=== PATIENT | male | born 1945 ===

== ENCOUNTER → 2018-07-06 21:15 | Outpatient (REF) | payer OTHER, SELFPAY ==
[2018-07-06 22:20] LABS: Alanine Aminotransferase 36 IU/L (21-72); Albumin Globulin Ratio 1.4 (1.0-2.8); Alkaline Phosphatase 95 U/L (38-126); Aspartate Aminotransferase 39 IU/L (17-59); BUN Creatinine Ratio 21.5 (6-22); Bilirubin Total 0.3 mg/dL (0.2-1.3); Blood Urea Nitrogen 28 mg/dL (9-20); Carbon Dioxide 30 mmol/L (22-32); Chloride 102 mmol/L (98-107); Estimated Glomerular Filt Rate 54.4 mL/min (>60); Globulin 2.9 g/dL (1.7-4.1); Glucose 90 mg/dL (80-110); HEMOLYSIS < 15 (0-50); Potassium 4.1 mmol/L (3.4-5.1); Sodium 140 mmol/L (137-145); Total Protein 6.9 g/dL (6.3-8.2)
== END ==
LOC: LAB 21:15
PROVIDERS: Visit Provider Family Medicine Addiction Medicine
DX: Z79.899 Other long term (current) drug therapy (principal); I49.8 Other specified cardiac arrhythmias
CPT/HCPCS: 36415; 80053; 83735